=== PATIENT | male | born 1960 | race Caucasian/White ===

== ENCOUNTER → 2016-10-01 | Outpatient (CLI) | payer OTHER ==
[~2016-10-01] MED LIST: CINNAMON500 MG PO; CO Q-1050 MG PO; EPA FISH OIL1000 MG PO; GARLIC; LEVITRA10 MG PO; MOTRIN 400400 MG/TAB PO; OMEGA 31000 MG PO; VIAGRA 25MG TAB25 MG PO; VITAMIN D1000 IU PO; VITAMIN D2000 I1 PO; ZOCOR20 MG PO; ZYRTEC 10MG10 MG PO
== END ==
LOC: COL.RAD 09:02
DX: R10.12 Left upper quadrant pain (principal)
CPT/HCPCS: A9562